=== PATIENT | male | born 1965 | race Caucasian/White ===

== ENCOUNTER 2020-04-05 19:47 | Emergency (ER) | payer OTHER ==
[~2020-04-05] VITALS: Ht 182.9 cm; Wt 93.0 kg
[2020-04-05] MEDS ORDERED: LISINOPRIL-HCT1 EAC2 PO (20:38)
[2020-04-05] MEDS ORDERED: NORVASC 2.5 MG2.5 M1 PO (20:38)
[2020-04-05 20:44] LABS: ABSOLUTE NEUTROPHILS 5.9 thou/uL (1.4-8.2); BASOPHILS 0.9 % (0.0-2.0); EOSINOPHILS 1.4 % (0.0-3.0); HEMATOCRIT 46.3 % (42.0-52.0); HEMOGLOBIN 15.7 gm/dL (14.0-18.0); LYMPHOCYTES 22.1 % (24.0-44.0); MCH 31.2 pg (26.0-34.0); MCHC 33.9 g/dL (28.0-37.0); MCV 92.1 fL (80.0-100.0); MONOCYTES 9.6 % (1.0-8.0); PLATELET COUNT 205 thou/uL (150-400); RBC 5.03 mil/uL (4.50-6.00); RDW 14.6 % (10.5-14.5); WBC 8.9 thou/uL (4.0-11.0)
[2020-04-05 20:52] LABS: ANION GAP 11 mmol/L (7-16); BUN 32 mg/dL (7-18); CALCIUM 8.6 mg/dL (8.5-10.1); CHLORIDE 103 mmol/L (98-107); CO2 23 mmol/L (21-32); GLUCOSE 102 mg/dL (74-106); POTASSIUM 3.8 mmol/L (3.5-5.1); SALICYLATE < 2.8 mg/dL (2.8-20.0); SODIUM 137 mmol/L (136-145)
[2020-04-05 20:56] LABS: AMP/METHAMP POSITIVE (Negative); BARBITURATES Negative (Negative); BENZODIAZEPINES Negative (Negative); COCAINE Negative (Negative); METHADONE Negative (Negative); OPIATES Negative (Negative); PCP Negative (Negative)
[2020-04-08 19:55] VITALS: BP 165/116
== END 2020-04-08 20:22 | disposition home or self-care (01) ==
LOC: ER 19:47
PROVIDERS: Nurse Practitioner
DX: F23 Brief psychotic disorder (principal); F32.3 Major depressive disorder, single episode, severe with psychotic features; F15.10 Other stimulant abuse, uncomplicated; F10.920 Alcohol use, unspecified with intoxication, uncomplicated; I10 Essential (primary) hypertension; Z20.822 Contact with and (suspected) exposure to COVID-19; Z79.899 Other long term (current) drug therapy; Z91.048 Other nonmedicinal substance allergy status; Z88.8 Allergy status to other drugs, medicaments and biological substances

== ENCOUNTER 2020-05-08 13:47 | Emergency (ER) | payer OTHER ==
[~2020-05-08] VITALS: Ht 182.9 cm; Wt 90.7 kg
[~2020-05-08 13:47] MED LIST: LISINOPRIL-HCT1 EAC2 PO; NORVASC 2.5 MG2.5 M1 PO
[2020-05-08 13:50] VITALS: BP 123/82
[2020-05-08 15:30] LABS: BASOPHILS 0.8 % (0.0-2.0); EOSINOPHILS 1.6 % (0.0-3.0); HEMATOCRIT 44.7 % (42.0-52.0); HEMOGLOBIN 15.2 gm/dL (14.0-18.0); LYMPHOCYTES 14.1 % (24.0-44.0); MCH 31.5 pg (26.0-34.0); MCV 92.8 fL (80.0-100.0); MONOCYTES 8.9 % (1.0-8.0); PLATELET COUNT 164 thou/uL (150-400); POLYS 74.6 % (36.0-66.0); RBC 4.82 mil/uL (4.50-6.00); RDW 15.3 % (10.5-14.5); WBC 6.6 thou/uL (4.0-11.0)
[2020-05-08 15:36] LABS: ANION GAP 11 mmol/L (7-16); BUN 13 mg/dL (7-18); CALCIUM 8.7 mg/dL (8.5-10.1); CHLORIDE 99 mmol/L (98-107); CO2 24 mmol/L (21-32); GLUCOSE 98 mg/dL (74-106); POTASSIUM 3.2 mmol/L (3.5-5.1); SODIUM 134 mmol/L (136-145)
[2020-05-08 15:42] LABS: ALBUMIN 3.3 g/dL (3.4-5.0); SALICYLATE < 2.8 mg/dL (2.8-20.0); SGOT 47 U/L (15-37); SGPT 41 U/L (16-63); TOTAL BILIRUBIN 0.8 mg/dL (0.2-1.0); TOTAL PROTEIN 7.5 g/dL (6.4-8.2)
== END 2020-05-08 15:40 | disposition home or self-care (01) ==
LOC: ER 13:47
PROVIDERS: Emergency Medicine
DX: S49.91XA Unspecified injury of right shoulder and upper arm, initial encounter (principal); F41.9 Anxiety disorder, unspecified; I10 Essential (primary) hypertension; F17.210 Nicotine dependence, cigarettes, uncomplicated; Z79.899 Other long term (current) drug therapy; Z88.8 Allergy status to other drugs, medicaments and biological substances; X50.1XXA Overexertion from prolonged static or awkward postures, initial encounter; Y93.89 Activity, other specified; Y92.89 Other specified places as the place of occurrence of the external cause; Y99.8 Other external cause status; Z20.822 Contact with and (suspected) exposure to COVID-19

== ENCOUNTER 2020-05-24 16:59 | Inpatient (IN) | payer OTHER ==
[~2020-05-24] VITALS: Ht 182.9 cm; Wt 83.9 kg
[2020-05-24 17:02] VITALS: BP 189/117
[2020-05-24 17:49] LABS: ABSOLUTE NEUTROPHILS 4.8 thou/uL (1.4-8.2); BASOPHILS 0.9 % (0.0-2.0); EOSINOPHILS 2.1 % (0.0-3.0); HEMATOCRIT 46.7 % (42.0-52.0); HEMOGLOBIN 15.6 gm/dL (14.0-18.0); LYMPHOCYTES 22.2 % (24.0-44.0); MCH 31.7 pg (26.0-34.0); MCHC 33.5 g/dL (28.0-37.0); MCV 94.6 fL (80.0-100.0); MONOCYTES 7.8 % (1.0-8.0); PLATELET COUNT 319 thou/uL (150-400); RBC 4.93 mil/uL (4.50-6.00); RDW 15.7 % (10.5-14.5); WBC 7.2 thou/uL (4.0-11.0)
[2020-05-24 18:07] LABS: ANION GAP 10 mmol/L (7-16); BUN 19 mg/dL (7-18); CALCIUM 8.7 mg/dL (8.5-10.1); CHLORIDE 103 mmol/L (98-107); CO2 24 mmol/L (21-32); GLUCOSE 108 mg/dL (74-106); POTASSIUM 3.1 mmol/L (3.5-5.1); SALICYLATE < 2.8 mg/dL (2.8-20.0); SODIUM 137 mmol/L (136-145)
[2020-05-24 18:23] LABS: AMP/METHAMP POSITIVE (Negative); BARBITURATES Negative (Negative); BENZODIAZEPINES Negative (Negative); COCAINE Negative (Negative); METHADONE Negative (Negative); OPIATES Negative (Negative); PCP Negative (Negative)
--- NOTE | 2020-05-24 20:50 | NUR ---
POISON CONTROL CALLED, WILL FAX OVER RECOMMENDATIONS
--- NOTE | 2020-05-25 00:32 | NUR ---
[place], POISON CONTROL CALLED FOR UPDATE ON PATIENT STATUS
--- NOTE | 2020-05-25 05:38 | NUR ---
[facility] CALLED FOR PATIENT UPDATE. CASE CLOSED FROM POISON CONTROL PERSPECTIVE
--- NOTE | 2020-05-25 07:17 | EKG ---
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
[2020-05-25 09:18] LABS: CALCIUM 8.2 mg/dL (8.5-10.1); CREATININE 0.9 mg/dL (0.7-1.3); POTASSIUM 3.7 mmol/L (3.5-5.1)
[2020-05-25 16:19] VITALS: BP 159/100
[2020-05-25 16:28] VITALS: BP 159/100
[2020-05-25 16:51] VITALS: BP 150/102
[2020-05-25 17:36] VITALS: BP 173/112
--- NOTE | 2020-05-25 19:15 | NUR ---
Pt came to the unit at 4:45 pm with a 1:1 sitter w/ IV fluids infusing. Called the ED and house sup several times for [facility], this was done at 6 pm. House sup informed that pt was placed on CIWA protocol upon checking the orders and for pt to be moved as per unit. Endorsed to the night nurse.
[2020-05-25 20:03] VITALS: BP 173/104
--- NOTE | 2020-05-26 04:58 | NUR ---
UPON SHIFT REPORT, PT RECENTLY ADMITTED TO UNIT. CONSENTS OBTAINED, ALCOHOL WITHDRAWAL ASSESSMENTS INITIATED, SITTER IN PLACE, ROOM CLEARED. FINAL CLEANER NOTIFIED, PT TO BE TRANSFERRED WHEN BED AVAILABLE. PT OBSERVED WITH MINIMAL TREMORS, FLAT AFFECT AND COOPERATIVE BEHAVIOR. PT AOX4, REPORTING 10/10 PAIN IN RIGHT SHOULDER, DENIES HEADACHE AND SOB WHILE ON ROOM AIR. PT ALSO RATING 7-8/10 ANXIETY AND 8/10 DEPRESSION. ALCOHOL WITHDRAWAL ASSESSMENT OF 6. PT RECEIVING PRN PO ATIVAN Q1HR. PT REPORTS SI WITH PLAN TO OD ON PILLS. PT ALSO REPORTS FEELING UNSAFE RETURNING HOME WITH FRIEND HOME ENVIRONMENT HAS A LOT OF DRUGS, REPORTS ENVIRONMENT TOXIC. PT RESTING WITHOUT INTERRUPTION OR OBSERVATION OF PAIN, DISCOMFORT, OR SOB UPON 2ND ALCOHOL WITHDRAWAL ASSESSMENT, SCORE OF 0. PT TRANSFERRED APPROX 0208 TO 360, REPORT GIVEN TO LAUREANO CALDERON. FREQUENT MONITORING TO CONTINUE, SITTER REMAINS IN PLACE.
[2020-05-26 05:52] VITALS: BP 171/109
--- NOTE | 2020-05-26 07:15 | NUR ---
Transferred from 4W around 214 this am with sitter for SI observation. CIWA of 3 uppon arrival, denies any pain and verbalized he just wants to sleep. Still sleeping this am with sitter at bedside.
[2020-05-26 08:21] VITALS: BP 183/113
[2020-05-26 11:26] VITALS: BP 161/103
--- NOTE | 2020-05-26 12:04 | NUR ---
INITIAL ASSESSMENT: Received consult for psych placement. SARAN reviewed chart and spoke with nursing and attending physician. Pt was admitted from home due to SI. Pt intentionally overdosed. Psych consulted. Pt has been to [facility] as well as residential treatment facilities in the past. Recommendation made for pt to be transferred to an inpt facility. Per attending physician, pt is medically stable for transfer. Pt has 1:1 sitter at bedside. SARAN met with pt at bedside. Introduced role of SW. Pt agreeable with plan for inpt psych. No preference of facility voiced. SARAN placed call to [facility] and spoke with Jorge, who states they are not accepting any adult admissions today. SARAN spoke with intake at [facility], who state they are at capacity. SARAN spoke with Kira at [facility], who states they will review pt's info. SARAN faxed clinical info to [facility]. SARAN is following to assist as needed with discharge planning.
[2020-05-26 19:29] VITALS: BP 135/86
--- NOTE | 2020-05-26 21:57 | NUR ---
PT REMAINS ON 1:1. PT RESTING IN BED IN THE DARK. PT NEEDS TO BE PROMPTED TO ANSWER QUESTIONS. PT REFUSED SCHEDULED HS MEDS, ACCEPTED CIWA ATIVAN. IVF INTACT. PT REPORTED ACTIVE SI, BUT WOULD NOT STATE HIS THOUGHTS RE A PLAN.
[2020-05-27 02:50] VITALS: BP 160/112
--- NOTE | 2020-05-27 03:02 | NUR ---
PT DBP ELEVATED, PT DECLINED ATIVAN AND DENIED HAVING ANY WITHDRAWL SYMPTOMS. PT WAS SHARP TONED AND YELLED AT NURSE TO LEAVE HIM ALONE. PT RETURNED TO SLEEPING.
[2020-05-27 05:03] LABS: HEMATOCRIT 44.5 % (42.0-52.0); HEMOGLOBIN 14.6 gm/dL (14.0-18.0); MCH 31.5 pg (26.0-34.0); MCHC 32.8 g/dL (28.0-37.0); MCV 96.1 fL (80.0-100.0); RBC 4.63 mil/uL (4.50-6.00); RDW 15.4 % (10.5-14.5); WBC 5.3 thou/uL (4.0-11.0)
--- NOTE | 2020-05-27 05:35 | NUR ---
NURSE ASKED PT IF HE WANTED A BP RECHECK, PT IGNORED NURSE.
[2020-05-27 05:43] LABS: CALCIUM 8.4 mg/dL (8.5-10.1); CREATININE 0.9 mg/dL (0.7-1.3); POTASSIUM 4.1 mmol/L (3.5-5.1)
--- NOTE | 2020-05-27 13:37 | NUR ---
MORE COOPERATIVE TODAY, WANTS TO TAKE A SHOWER. CIWA 0-2. ASKS FOR ATIVAN IN AFTERNOON AND STATES HIS SYMPTOMS ARE TREMORS, HEADACHE, RACING THOUGHTS. 1 MG PO GIVEN.
[2020-05-27 20:35] VITALS: BP 161/112
[2020-05-27 23:40] VITALS: BP 145/86
[2020-05-28 03:42] VITALS: BP 166/82
--- NOTE | 2020-05-28 07:22 | NUR ---
PT MAKING SLOW PROGRESS TOWARD GOALS. PT ASKING FOR "ATIVAN." CIWA ASSESSMENT COMPLETED. PT C/O HEADACHE, NAUSEA AND AGITATION. DENIED ANY TYPE OF HALLUCINATIONS. PT HANDS ASSESSMENT WHILE RESTING ON THE BED. BOTH HANDS WERE STILL, WITHOUT ANY TANGIBLE TREMOR OR SWEATINESS. PT THEN RAISED BOTH HANDS THAT BECAME TREMULOUS. "JUST BECAUSE YOU DON'T SEE MY HANDS TREMBLING DOESN'T MEAN I'M NOT WITHDRAWING FROM ALCOHOL." SEE CHARTING.
[2020-05-28 08:45] VITALS: BP 179/113
[2020-05-28 15:22] VITALS: BP 154/95
[2020-05-28 19:58] VITALS: BP 150/90
--- NOTE | 2020-05-29 05:58 | NUR ---
Pt.verbalized last night he wants to go home. Lorazepam given for CIWA score of 9. He slept well during the night. Sitter at bedside. No suicidal ideation.
[2020-05-29 06:44] VITALS: BP 177/108
--- NOTE | 2020-05-29 07:22 | EKG ---
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 : 1965 Requested By: Brenna Ortega Order Number: [id number] MD: Froy Nunez Measurements Intervals [place] Rate: 89 P: 74 NE: 149 QRS: 56 QRSD: 100 T: 20 QT: 412 QTc: 502 Interpretive Statements Sinus rhythm Probable left ventricular hypertrophy Prolonged QT interval Compared to ECG 05/24/2020 17:21:42 No significant changes Electronically Signed On 05-29-2020 7:22:04 CDT by Froy Nunez [email or web address] <ELECTRONICALLY SIGNED> By: Froy Nunez MD, [facility] 05/29/20 0722 [id number] Froy Nunez MD, FACC /EPI
[2020-05-29 08:48] VITALS: BP 182/116
[2020-05-29 12:09] VITALS: BP 157/113
--- NOTE | 2020-05-29 12:45 | NUR ---
DR EDWARD SAW PATIENT AND DC'D SITTER FOR SUICIDE PRECAUTIONS...PT IV REMOVED AND SITTER DC'D...PATIENT TOOK SHOWER AND GOT DRESSED...AROUND 1344 HE WALKED OFF UNIT AND LEFT AMA.. MATERIAL EXPEDITER SAW PATIENT HE WAS GETTING ON ELEVATOR AND BEFORE DISCHARGE COMPLETE..
--- NOTE | 2020-05-29 14:40 | NUR ---
DISCHARGE NOTE: SW reviewed chart and spoke with nursing and attending physician. Pt medically stable for transfer to inpt psych facility. Psych evaluated pt and discontinued the 1:1 sitter. Pt left AMA. Attending physician and psych notified. No additional SW needs identified at this time, but is available to assist should needs arise.
== END 2020-05-29 14:17 | disposition left against medical advice (07) | DRG 918 ==
LOC: ER 16:59 → EROBS 21:12 → 3W 21:12 → 4W 05-25 16:52 → 3W 05-26 02:24
PROVIDERS: Nurse Practitioner; Psychiatry & Neurology Psychiatry; ADMIT Internal Medicine; ATTEND Internal Medicine
DX: T46.1X2A Poisoning by calcium-channel blockers, intentional self-harm, initial encounter (principal); R45.851 Suicidal ideations; T43.622A Poisoning by amphetamines, intentional self-harm, initial encounter; I10 Essential (primary) hypertension; T46.4X2A Poisoning by angiotensin-converting-enzyme inhibitors, intentional self-harm, initial encounter; F32.9 Major depressive disorder, single episode, unspecified; F17.210 Nicotine dependence, cigarettes, uncomplicated; G89.29 Other chronic pain; M25.511 Pain in right shoulder; M25.571 Pain in right ankle and joints of right foot; F15.10 Other stimulant abuse, uncomplicated; F39 Unspecified mood [affective] disorder; F10.129 Alcohol abuse with intoxication, unspecified; F91.8 Other conduct disorders; Z20.822 Contact with and (suspected) exposure to COVID-19; Z86.19 Personal history of other infectious and parasitic diseases; Z59.0 Homelessness; Z88.8 Allergy status to other drugs, medicaments and biological substances; Z91.14 Patient's other noncompliance with medication regimen; Y92.89 Other specified places as the place of occurrence of the external cause; Z53.29 Procedure and treatment not carried out because of patient's decision for other reasons
CPT/HCPCS: 10040; 10080